=== PATIENT | female | born 1940 | race Two or more races ===

== ENCOUNTER 2024-09-13 19:18 | Emergency (ER) | payer MEDICARE, MEDICAID, SELFPAY ==
--- NOTE | 2024-09-13 19:39 | PD.EDEXREM ---
ED Extremity Problem RME/HPI General Chief complaint: Extremity Problem,Nontraumatic Stated complaint: RIGHT FOOT INFECTED Time Seen by Provider: 09/13/24 19:27 Arrival date/time: 09/13/24 19:18 RME / HPI RME / HPI Narrative: This section includes all my notes and documentations, including HPI, PE, and ED course. Joseluis Nicole MD HPI: 84-year-old female here to be evaluated with right foot injury about 5 days ago. Her large dog stepped on it. She is concerned about enlarging swelling and redness. No fever or chills. No other complaints. ROS: All negative except as documented in HPI. Physical Exam: General: Alert and oriented. No acute distress when remaining still. Eyes: Conjunctivae and lids clear. ENT: No nasal congestion. Neck: Supple. Lungs: No respiratory distress. Skin: Warm and dry. Neuro: Alert and oriented X 3. Right Foot: Distal 1/3 remarkable for edema and calor and erythema and tenderness. I reviewed all diagnostic test results. My interpretation of the foot x-ray is no acute fracture. At this point, diagnoses include cellulitis and contusion of the right foot. Treatment here included Augmentin. Recommended a trial of outpatient treatment. Based on my best medical judgment, made decision no further evaluation or treatment indicated at this time. Patient understands and agrees to the discharge instructions customized and printed, see below. Discharge Instructions from Dr. Nicole printed for you: 1. Fortunately, there is no broken bone. 2. For the infection, take Augmentin as prescribed. 3. Elevate your feet/ankles above your waist level for 3 days as much as possible. 4. Expect several weeks for complete recovery. 5. Seek immediate medical care with worsening, fever, or with any concerns. Joseluis Nicole MD Related Data Previous Rx's ?Medication ?Instructions ?Recorded lisinopril 40 mg tablet 40 mg PO QDAY #30 tabs 08/11/23 metformin 1,000 mg tablet,extended 1,000 mg PO QDAY #30 tabs 08/11/23 release 24hr (osmotic) tramadol 50 mg tablet 50 mg PO Q6H PRN pain (scale score 09/15/23 7-10) #10 tabs amoxicillin 875 mg-potassium 1 tab PO BID #10 tabs 09/13/24 clavulanate 125 mg tablet Allergies Allergy/AdvReac Type Severity Reaction Status Date / Time acetaminophen (From Vicodin) Allergy Verified 08/25/23 13:56 hydrocodone (From Vicodin) Allergy Verified 08/25/23 13:56 Review of Systems Review of Systems Systems Reviewed: All systems reviewed, normal except as documented Past Medical History Past Medical History NEUROLOGIC: Negative Neurological Disorders, Cerebrovascular Accident or Alzheimer's Disease CARDIAC: Positive Cardiac Disorders and Hypertension; Negative Myocardial Infarction, Angina or Congestive Heart Failure RESPIRATORY: Negative Chronic Obstructive Pulmonary Disease (COPD) or Tuberculosis GASTROINTESTINAL: Negative Gastrointestinal Disorders, Liver Cancer or Pancreatic Cancer GENITOURINARY: Negative Genitourinary Disorders or Renal Disease MUSCULOSKELETAL: Negative Musculoskeletal Disorders, Muscular Dystrophy or Bone Cancer ENT: Negative Glaucoma ENDOCRINE: Positive Endocrine Disorders and Diabetes Mellitus Type 2; Negative Diabetes Mellitus Type 1 OTHER HISTORY: Negative Down Syndrome, Developmental Delay or Cancer Family History FAMILY HISTORY: Positive Family Cardiac Disorders Social History SMOKING STATUS: Never smoker SUBSTANCE USE: does not use ED Exam Narrative Physical exam: As noted in HPI. Course Quality Measures none Orders Category Date Time Status XR foot comp RT min 3V Stat Exams 09/13/24 19:44 Completed Amoxicillin/Pot Clav 875 [Augmentin 875] Med 09/13/24 19:43 Discontinued 1 tab PO X1 ONE Vital Signs Vital signs: Vital Signs Temperature 98.7 F 09/13/24 19:49 Pulse Rate 91 09/13/24 19:49 Respiratory Rate 19 09/13/24 19:49 Blood Pressure 109/70 09/13/24 19:49 Pulse Oximetry (%) 97 09/13/24 19:49 Extremity Problem Patient data External records reviewed:: [facility] previous records (Per chart review, patient was admitted here on 08/01/23 for acute alteration of mental status.) Clinical information provided by:: patient Social determinants that could affect healthcare access:: none Patient has the following chronic illnesses:: DMII How is presenting disease/condition affected by chronic disease/condition?: uneffected by Evaluation data The following diagnostics were reviewed and interpreted by me:: radiology exam(s) Lab and/or radiology exams considered but not ordered:: none Interpretation Summary: My interpretation of the right foot x-rays is no acute fracture. Medications / Prescriptions Medications or Prescriptions considered but not ordered:: none Medication administrations:: Medication Administration History Discontinued Medications Amoxicillin/Clavulanate Potassium (Amoxicillin/Pot Clav 875 Tablet) 1 tab PO X1 ONE Stop: 09/13/24 19:44 Last Admin: 09/13/24 20:03 Dose: 1 tab Documented By: OA Augmentin Consultations Consultation(s) initiated? (list below): No Diagnosis Extremity Problem Differential Diagnosis: cellulitis and other (Foot fracture, contusion, sprain, strain) Most likely diagnosis given after review of the tests above:: cellulitis and contusion of the right foot. Admission Indicated Admission indicated?: not indicated Explain why admission is indicated or not indicated:: There was no indication for admission. Admission Request Was there a request for admission?: No Disposition Plan Disposition Plan: Discharge Discharge Attestation Discharge Attestation: The patient and all family members were given an opportunity to ask questions and understood the discharge instructions. Discharge instructions specifically effects, indications for sooner follow up or return to the emergency department, and the expected course of current diagnosis. Patient condition: Stable Discharge Plan Plan Patient Disposition: HOME (Self Care) Prescriptions/Referrals Prescriptions/Med Rec: New amoxicillin-pot clavulanate 875-125 mg tablet 1 tab PO BID Qty: 10 0RF No Action lisinopril 40 mg tablet 40 mg PO QDAY MDD 40 mg Qty: 30 2RF metformin 1,000 mg tablet extended release 24hr 1,000 mg PO QDAY MDD 1000 mg Qty: 30 2RF tramadol 50 mg tablet 50 mg PO Q6H MDD 200 mg PRN (Reason: pain (scale score 7-10)) Qty: 10 0RF Rx Instructions: Take 1 tablet for pain as needed every 6 hours. Referrals: No Primary/Family,Physician [Primary Care Provider] - In 1 week Problem List Clinical Impression: Cellulitis of foot, right, Contusion of foot, right Patient/Caregiver Discharge Instructions Discharge Activity: activity as tolerated Education Materials: ED Cellulitis, ED Contusion, Lower Extremity Additional Instructions: Discharge Instructions from Dr. Nicole printed for you: 1. Fortunately, there is no broken bone. 2. For the infection, take Augmentin as prescribed. 3. Elevate your feet/ankles above your waist level for 3 days as much as possible. 4. Expect several weeks for complete recovery. 5. Seek immediate medical care with worsening, fever, or with any concerns. Print Language: Pashto Stand Alone Forms: [facility] Award Info., Patient Portal Info Letter
--- NOTE | 2024-09-13 19:44 | XR_ITS ---
Examination: Foot, right, 3 views Technique: AP, oblique, lateral views foot, 3 views Date and time of exam: September 13, 2024 at 1850 hours INDICATIONS: Patient fell today with injury to the foot, foot pain FINDINGS: Severe osteopenia No acute fracture No dislocation IMPRESSION: No acute fracture Given the severe osteopenia, suggest short-term follow-up foot films as clinically warranted
[2024-09-13 19:49] VITALS: BP 109/70; PULSE 91; RESP 19; TEMP 37.1; O2SAT 97
[2024-09-13] MEDS: AMOXICILLIN/POT CLAV 875 TABLET 1 TAB PO (20:03)
== END 2024-09-13 20:58 | disposition home or self-care (01) ==
PROVIDERS: Emergency Provider Emergency Medicine
DX: S90.31XA Contusion of right foot, initial encounter (principal); L03.115 Cellulitis of right lower limb; W54.1XXA Struck by dog, initial encounter
CPT/HCPCS: 73630; 99283; A9270